=== PATIENT | female | born 1990 | race Caucasian/White ===

== ENCOUNTER 2017-02-09 17:07 | Emergency (ER) | payer SELFPAY ==
--- NOTE | 2017-02-28 08:17 | ER ---
ADMIT: 02/09/2017 RM/LOC: ER [facility] MR#: [id number] [address] [id number] MABEL HACKETT [address] [place] [address] Emergency Room Report SEX: F AGE: 26 : 1990 DATE: 02/09/2017 ADDENDUM: This patient comes to the ER because she is having abdominal pain. She has a tender area on her abdomen that she has had for the last 7 days. She states it is painful. On physical exam, she has a tender indurated area right above her pubic symphysis. The area is thickening. There is not anything that is fluctuant. I wrote a prescription for Keflex and Bactrim. She should use moist heat to the area. DIAGNOSIS: Cellulitis. DISPOSITION: We will have her follow up with her primary in the next few days if not feeling better. Please see my T-sheet. AASHISH Durand / Layton Crespo MD / angela JOB #: [id number] CC: Layton Crespo MD, Attending Physician Amadou Hodges MD, Family Physician
== END 2017-02-09 19:10 | disposition home or self-care (01) ==
LOC: ER 17:07
DX: L03.311 Cellulitis of abdominal wall (principal); F17.210 Nicotine dependence, cigarettes, uncomplicated; Z98.890 Other specified postprocedural states